=== PATIENT | female | born 1985 | race Two or more races ===

== ENCOUNTER 2019-11-11 10:00 | Emergency (ER) | payer OTHER ==
[~2019-11-11] VITALS: Ht 160 cm; Wt 80.7 kg
[2019-11-11 10:05] VITALS: BP 122/76
== END 2019-11-11 11:29 | disposition home or self-care (01) ==
LOC: ER 10:00
DX: J40 Bronchitis, not specified as acute or chronic (principal); R05 Cough; R51 Headache
CPT/HCPCS: 71045

== ENCOUNTER 2023-12-20 13:57 | Emergency (ER) | payer OTHER ==
[~2023-12-20] VITALS: Ht 160 cm; Wt 81.8 kg
[2023-12-20] MEDS: ALBUTEROL SULF 2.5 MG/0.5ML(0.5%) NEB SOLN HHN ONE (14:35)
[2023-12-20] MEDS ORDERED: ALBUAER3 IN (15:48)
[2023-12-20 16:19] VITALS: BP 111/75; TEMP 98.7
[2023-12-20 16:21] VITALS: PULSE 86; RESP 16; O2SAT 99
== END 2023-12-20 16:31 | disposition home or self-care (01) ==
LOC: EDBD 13:57 → ER 13:57
DX: R07.89 Other chest pain (principal); R06.02 Shortness of breath; Z77.098 Contact with and (suspected) exposure to other hazardous, chiefly nonmedicinal, chemicals; Z98.890 Other specified postprocedural states; Z79.899 Other long term (current) drug therapy
CPT/HCPCS: 71045; 93005; 94640